=== PATIENT | female | born 1955 | race Caucasian/White ===

== ENCOUNTER → 2018-11-21 07:41 | Outpatient (CLI) | payer OTHER, SELFPAY ==
--- NOTE | 2018-11-21 07:46 | DI.MG.S_ITS ---
BILATERAL DIGITAL SCREENING MAMMOGRAM 3D/2D WITH CAD: 11/21/2018 CLINICAL: Routine screening. Comparison is made to exams dated: 09/10/2009 mammogram and 10/05/2007 mammogram - [facility]. The tissue of both breasts is heterogeneously dense. This may lower the sensitivity of mammography. Current study was also evaluated with a Computer Aided Detection (CAD) system. There is an asymmetry in the right breast middle depth superior region seen on the mediolateral oblique view only. There also is an asymmetry in the right breast middle depth lateral region seen on the craniocaudal view only. There are bilateral circular mole markers. No other significant masses, calcifications, or other findings are seen in either breast. IMPRESSION: INCOMPLETE: NEEDS ADDITIONAL IMAGING EVALUATION The asymmetry in the right breast middle depth superior region seen on the mediolateral oblique view only is indeterminate. Additional views with possible ultrasound are recommended. The asymmetry in the right breast middle depth lateral region seen on the craniocaudal view only is indeterminate. Additional views with possible ultrasound are recommended. This exam was interpreted at Station ID: [id number]. NOTE: For mammograms, a report in lay terms will be sent to the patient. Approximately 15% of breast malignancies will not be visualized mammographically. In the management of a palpable breast mass, a negative mammogram must not discourage biopsy of a clinically suspicious lesion. Electronically Signed By: Adal Copeland M.D. ecl/:11/21/2018 09:56:23 letter sent: Additional Imaging Needed ACR BI-RADS Category 0: Incomplete 3340F
== END ==
PROVIDERS: PCP Internal Medicine; Visit Provider Student in an Organized Health Care Education/Training Program
DX: Z12.31 Encounter for screening mammogram for malignant neoplasm of breast (principal)
CPT/HCPCS: 77063; 77067

== ENCOUNTER → 2019-03-18 14:33 | Outpatient (CLI) | payer MEDICARE, OTHER, SELFPAY ==
--- NOTE | 2019-03-18 | DI.MG.S_ITS ---
UNILATERAL RIGHT DIGITAL DIAGNOSTIC MAMMOGRAM 3D/2D WITH ADDITIONAL VIEWS: 03/18/2019 CLINICAL: Additional evaluation requested from prior study. Comparison is made to exams dated: 11/21/2018 mammogram, 09/10/2009 mammogram, and 10/05/2007 mammogram - [facility]. The tissue of right breast is heterogeneously dense. This may lower the sensitivity of mammography. The asymmetry in the right breast middle depth superior region seen on the mediolateral oblique view only is not seen in additional views. Then asymmetry in the right breast middle depth lateral region seen on the craniocaudal view only is not seen in additional views. No other significant masses or calcifications are seen in the breast. IMPRESSION: The asymmetries in the right breast seen on the screening mammogram likely respresent superimposed fibroglandular tissue and are benign. There is no mammographic evidence of malignancy. A 1 year screening mammogram is recommended. This exam was interpreted at Station ID: [id number]. NOTE: For mammograms, a report in lay terms will be sent to the patient. Approximately 15% of breast malignancies will not be visualized mammographically. In the management of a palpable breast mass, a negative mammogram must not discourage biopsy of a clinically suspicious lesion. Electronically Signed By: Rosanna negrete/:03/18/2019 15:03:11 letter sent: Normal Exam ACR BI-RADS Category 2: Benign Finding(s) 3342F
== END ==
PROVIDERS: PCP Internal Medicine; Visit Provider Student in an Organized Health Care Education/Training Program
DX: R92.8 Other abnormal and inconclusive findings on diagnostic imaging of breast (principal); N64.89 Other specified disorders of breast
CPT/HCPCS: 77065; G0279

== ENCOUNTER → 2019-09-23 09:25 | Outpatient (CLI) | payer MEDICARE, OTHER, SELFPAY ==
[2019-09-25 06:14] LABS: COVID19 Sendout Not Detected (Not Detected)
== END ==
PROVIDERS: PCP Internal Medicine; Visit Provider Registered Nurse
DX: J02.9 Acute pharyngitis, unspecified (principal)
CPT/HCPCS: 87070; 87635

== ENCOUNTER → 2020-03-07 10:27 | Outpatient (CLI) | payer MEDICARE, OTHER, SELFPAY ==
[2020-03-08 16:57] LABS: COVID19 Sendout Not Detected (Not Detect)
== END ==
PROVIDERS: PCP Internal Medicine; Visit Provider Physician Assistant
DX: Z11.59 Encounter for screening for other viral diseases (principal)
CPT/HCPCS: 87635

== ENCOUNTER → 2020-09-29 07:43 | Outpatient (CLI) | payer MEDICARE, OTHER, SELFPAY ==
--- NOTE | 2020-09-29 | DI.US.S_ITS ---
PROCEDURE: US ABD AORTA ANEURYSM SCREEN INDICATIONS: Cardiac murmur, unspecified TECHNIQUE: Real time scanning was performed of the aorta and iliac arteries, with image documentation. COMPARISON: None. FINDINGS: Aorta: Proximal aortic diameter measures 2.3 cm. Mid-aorta measures 1.9 cm. Distal aortic diameter is 1.9 cm. Iliac arteries: Right common iliac artery measures 1.6 cm. Left common iliac artery measures 1.6 cm. IMPRESSION: 1. No abdominal aortic aneurysm. 2. Mild plaque. Dictated by: Zac Arceo M.D. on 09/29/2020 at 8:16 Approved by: Zac Arceo M.D. on 09/29/2020 at 8:17
== END ==
PROVIDERS: PCP Student in an Organized Health Care Education/Training Program; Referring Provider Student in an Organized Health Care Education/Training Program; Visit Provider Student in an Organized Health Care Education/Training Program
DX: R01.1 Cardiac murmur, unspecified (principal); Z13.6 Encounter for screening for cardiovascular disorders; I70.0 Atherosclerosis of aorta
CPT/HCPCS: 76706

== ENCOUNTER → 2022-02-02 07:58 | Outpatient (CLI) | payer MEDICARE, OTHER, SELFPAY ==
--- NOTE | 2022-02-02 | DI.MG.S_ITS ---
BILATERAL DIGITAL SCREENING MAMMOGRAM 3D/2D WITH CAD: 02/02/2022 CLINICAL: Routine screening. Comparison is made to exams dated: 11/21/2018 mammogram, 09/10/2009 mammogram, and 10/05/2007 mammogram - [facility]. Both breasts are heterogeneously dense, which may obscure small masses (category c / 51-75% glandular tissue). Current study was also evaluated with a Computer Aided Detection (CAD) system. There is a benign calcification in the right breast. No significant masses, calcifications, or other findings are seen in either breast. There has been no significant interval change. IMPRESSION: BENIGN There is no mammographic evidence of malignancy. A 1 year screening mammogram is recommended. Based on the Tyrer Cuzick model (a risk assessment model) the patient's lifetime risk is 12.2% and her 10 year risk is 6.9%. According to the ACR, ACS, and NCCN guidelines, an annual breast MRI exam along with mammogram is recommended if the patient's lifetime risk is 20% or greater. This exam was interpreted at Station ID: [id number]. NOTE: For mammograms, a report in lay terms will be sent to the patient. Approximately 15% of breast malignancies will not be visualized mammographically. In the management of a palpable breast mass, a negative mammogram must not discourage biopsy of a clinically suspicious lesion. Electronically Signed By: Zac nettles/gail:02/02/2022 12:13:05 letter sent: Normal Exam ACR BI-RADS Category 2: Benign Finding(s) 3342F
== END ==
PROVIDERS: PCP Student in an Organized Health Care Education/Training Program; Referring Provider Student in an Organized Health Care Education/Training Program; Visit Provider Student in an Organized Health Care Education/Training Program
DX: Z12.31 Encounter for screening mammogram for malignant neoplasm of breast (principal)
CPT/HCPCS: 77063; 77067

== ENCOUNTER 2025-02-12 14:25 | Emergency (ER) | payer MEDICARE, OTHER, SELFPAY ==
[2025-02-12] VITALS (13 sets, daily range): BP systolic 133–244; BP diastolic 78–120; PULSE 46–94; RESP 19–36; O2SAT 81–100
--- NOTE | 2025-02-12 14:43 | DI.CT.S_ITS ---
PROCEDURE: CT ABDOMEN PELVIS W CON INDICATIONS: abd pain TECHNIQUE: After the administration of intravenous contrast, axial sections acquired from the lung bases to the pubic symphysis. Coronal and sagittal reformats were performed. For radiation dose reduction, the following was used: automated exposure control, adjustment of mA and/or kV according to patient size. COMPARISON: None. FINDINGS: Image quality: The exam is performed in late arterial phase. No significant contrast in the hepatic veins. Lower Chest: No significant findings. ABDOMEN: Liver: Heterogeneous appearance of the liver is secondary to late arterial phase. Gallbladder: No radiopaque gallstones or wall thickening. Biliary ducts: No intrahepatic biliary ductal dilatation. Prominent distal common bile duct which measures 8 mm in transverse dimension. Pancreas: Mild pancreatic ductal dilatation without visualized choledocholithiasis. No pancreatic parenchymal lesion by CT. Spleen: Size is within normal limits. Adrenal Glands: Flattened appearance of the left adrenal gland secondary to left pelvic kidney. Kidneys and Ureters: The right kidney is located within the right retroperitoneum. There are 2 right renal arteries. No right hydronephrosis. The left kidney is located within the posterior pelvic inlet with severe hydronephrosis due to a 4 mm stone at the left ureter vesicular junction (Hounsfield density of 453). Stomach and Bowel: Changes of appendectomy. The small bowel is normal in caliber. The large bowel is normal in caliber. Peritoneum: No abnormal intraperitoneal fluid. No free air. Ventral Wall: No significant ventral hernia. Abdominal Nodes: No retroperitoneal or mesenteric adenopathy by size criteria. Vessels: Aorta and inferior vena cava are normal in size. PELVIS: Pelvic Organs: Right adnexal 5.5 cm cystic lesion. Bladder: No bladder wall thickening, accounting for underdistention. Pelvic Nodes: No enlarged lymph nodes. Miscellaneous: No inguinal hernias are seen. Bones: No aggressive osseous abnormality. IMPRESSION: 1. Left obstructive nephrolithiasis due to a 4 mm stone at the left ureter vesicular junction. The left kidney is located in the pelvis. 2. Pancreatic ductal dilatation and mild dilatation of the distal common bile duct without choledocholithiasis. Recommend correlation with liver function tests and lipase. Consider follow-up outpatient abdominal MRCP for further evaluation. 3. Right adnexal 5.5 cm cystic lesion. Recommend further evaluation with outpatient pelvic ultrasound. Dictated by: Librado Rocha M.D. on 02/12/2025 at 16:28 Approved by: Librado Rocha M.D. on 02/12/2025 at 16:39
--- NOTE | 2025-02-12 14:47 | EKG_ITS ---
[id number] [address] Test Date: 2025-02-12 Pat Name: Suri Zambrano Department: Room: Gender: Female Sole Ruffer: ASHA : 1955 Requested By: Order Number: [id number] Reading MD: Rodrigo Moise MD Measurements Intervals [place] Rate: 54 P: 79 RI: 168 QRS: 82 QRSD: 96 T: 80 QT: 470 QTc: 445 Interpretive Statements Sinus bradycardia with premature atrial complexes Electronically Signed On 02-13-2025 7:36:52 PDT by Rodrigo Moise MD
[2025-02-12 14:53] LABS: Add Manual Diff / Slide Review NO; Hematocrit 43.9 % (36-46); Hemoglobin 14.9 g/dL (12.0-16.0); Lymphocytes Absolute Auto 1900 /uL (1100-4500); Mean Corpuscular HGB Conc 33.9 % (30-36); Mean Corpuscular Hemoglobin 31.3 PG (26-34); Mean Corpuscular Volume 92.3 fL (80-100); Platelet Count 260 X10^3/uL (150-400)
[2025-02-12 15:06] LABS: Alanine Aminotransferase 26 IU/L (<35); Albumin 4.8 g/dL (3.5-5.0); Albumin Globulin Ratio 1.5 (1.0-2.8); Alkaline Phosphatase 88 U/L (38-126); Blood Urea Nitrogen 20 mg/dL (7-17); Calcium 9.7 mg/dL (8.4-10.2); Carbon Dioxide 24 mmol/L (22-32); Chloride 102 mmol/L (98-107); Estimated Glomerular Filt Rate > 60 mL/min (>60); Globulin 3.2 g/dL (1.7-4.1); Glucose 165 mg/dL (70-99); HEMOLYSIS < 15 (0-50); Lipase 96 U/L (23-300); Potassium 3.8 mmol/L (3.4-5.1); Sodium 136 mmol/L (137-145); Total Protein 8.0 g/dL (6.3-8.2)
[2025-02-12] MEDS: LACTATED RINGERS 1,000 ML 1000 ML IV (15:18)
[2025-02-12] MEDS: ONDANSETRON 4 MG/2 ML INJ IV (15:21)
--- NOTE | 2025-02-12 15:24 | ED_ITS ---
HPI - Abdominal Pain General Chief Complaint: Abdominal Pain Stated Complaint: Throwing up. Lower abdominal pain x today Time Seen by Provider: 02/12/25 14:42 Source: patient Mode of arrival: Ambulatory History of Present Illness HPI narrative: 69-year-old female history of hypertension presents with sudden onset lower quadrant pain at 11:00 a.m. this morning associated with nausea and dry heaving but no actual vomiting. Patient denies any diarrhea, back pain, hematuria, vaginal discharge, chest pain, shortness of breath, fever, chills, body aches. Other than what is stated 14 point review of system is negative. Related Data Home Medications ?Medication ?Instructions ?Recorded ?Confirmed fluoxetine 40 mg capsule (Prozac) 40 mg PO DAILY 09/2209/23/19 lisinopril 20 1 tab PO DAILY 09/23/1908/27 mg-hydrochlorothiazide 25 mg tablet Previous Rx's ?Medication ?Instructions ?Recorded hydrocodone 5 mg-acetaminophen 325 1 tab PO Q4-6H PRN pain #20 tabs 02/12/25 mg tablet nitrofurantoin 100 mg PO Q12H 5 days #10 ca ps 02/12/25 monohydrate/macrocrystals 100 mg capsule (Macrobid) tamsulosin 0.4 mg capsule (Flomax) 0.4 mg PO DAILY #30 caps 02/12/25 Allergies Allergy/AdvReac Type Severity Reaction Status Date / Time bee pollen (BEE POLLEN) Allergy Unknown Verified 03/07/20 10:37 Penicillins (PENICILLINS) Allergy Unknown Verified 03/07/20 10:37 Review of Systems Review of Systems ROS Unobtainable: All systems reviewed & are unremarkable except as noted in HPI and below Patient History Medical History (Updated 02/12/25 @ 17:44 by Rodrigo Ventura DO) Hypertension Exam Narrative Exam Narrative: GENERAL: [69] year old patient appears stated age. Well-developed patient, in mild distress. HEAD: Atraumatic. Normocephalic. EYES: Pupils equal round and reactive. Extraocular motions intact. No scleral icterus. No injection or drainage. ENT: Nose without bleeding, purulent drainage. Throat without erythema, tonsillar hypertrophy or exudate. Airway patent. NECK: Trachea midline. Non tender CARDIOVASCULAR: Regular rate and rhythm without murmurs, gallops, or rubs. RESPIRATORY: Clear to auscultation. Breath sounds equal bilaterally. No wheezes, rales, or rhonchi. GASTROINTESTINAL: Abdomen soft, LLQ no r/r/g, nondistended. EXTREMITIES: No edema or joint tenderness. BACK: Nontender without deformity or crepitance. No flank tenderness. NEURO: AOx3. SKIN: No rash or erythema of visible areas Initial Vital Signs Initial Vital Signs: Vital Signs Pulse Rate 59 L 02/12/25 14:33 Respiratory Rate 22 02/12/25 14:33 Blood Pressure 244/112 H 02/12/25 14:33 Pulse Oximetry 96 02/12/25 14:33 Oxygen Delivery Method Room Air 02/12/25 14:33 Course Orders Ordered: ED Orders 02/12/25 14:40 Complete Blood Count AUTO DIFF Stat Comprehensive Metabolic Panel Stat Lipase Stat 02/12/25 14:43 CT abdomen pelvis w con Stat EKG-12 Lead Stat 02/12/25 17:15 Urinalysis and Microscopic Stat Urine Culture Stat Ondansetron HCl (Ondansetron 4 Mg/2 Ml Inj) 4 mg IV NOW PRN PRN Reason: Nausea And Vomiting Last Admin: 02/12/25 15:21 Dose: 4 mg Documented By: JAYLEEN Ondansetron HCl (Ondansetron 4 Mg Odt) 4 mg PO NOW PRN PRN Reason: Nausea And Vomiting Discontinued Medications Hydromorphone HCl (Hydromorphone Hcl 0.5 Mg/0.5 Ml Syringe) 0.5 mg IV NOW ONE Stop: 02/12/25 15:23 Last Admin: 02/12/25 15:28 Dose: 0.5 mg Documented By: JAYLEEN Lactated Ringer's (Lactated Ringers) 1,000 mls @ 1,000 mls/hr IV BOLUS ONE Stop: 02/12/25 15:42 Last Infusion: 02/12/25 16:12 Dose: Infused Documented By: Admin: 02/12/25 15:18 Dose: 1,000 mls/hr Documented By: JAYLEEN Ceftriaxone Sodium 1,000 mg/ (Sodium Chloride) 100 mls @ 200 mls/hr IV NOW ONE Stop: 02/12/25 16:52 Last Admin: 02/12/25 17:35 Dose: 200 mls/hr Documented By: RLC Ketorolac Tromethamine (Ketorolac 30 Mg/Ml Vial) 15 mg IV NOW ONE Stop: 02/12/25 15:23 Last Admin: 02/12/25 15:28 Dose: 15 mg Documented By: RLZuleyma Tamsulosin HCl (Tamsulosin 0.4 Mg Capsule) 0.4 mg PO NOW ONE Stop: 02/12/25 16:51 Last Admin: 02/12/25 17:35 Dose: 0.4 mg Documented By: JAYLEEN Vital Signs Vital signs: Vital Signs - 8 hr 02/12/25 14:33 02/12/25 15:14 02/12/25 15:15 Pulse Rate 59 L 77 Respiratory Rate 22 26 H Blood Pressure 244/112 H 203/120 H Pulse Oximetry 96 98 Oxygen Delivery Method Room Air Oxygen Flow Rate 02/12/25 15:15 02/12/25 15:30 02/12/25 15:30 Pulse Rate 53 L 46 L Respiratory Rate 19 24 Blood Pressure 215/102 H Pulse Oximetry 100 100 Oxygen Delivery Method Oxygen Flow Rate 02/12/25 15:41 02/12/25 15:41 02/12/25 16:04 Pulse Rate 48 L 57 L Respiratory Rate 26 H 24 Blood Pressure 244/109 H Pulse Oximetry 100 81 L Oxygen Delivery Method Nasal Cannula Room Air Oxygen Flow Rate 2 02/12/25 16:12 02/12/25 16:12 02/12/25 16:30 Pulse Rate 64 Respiratory Rate 21 Blood Pressure 163/83 H 155/83 H Pulse Oximetry 100 Oxygen Delivery Method Nasal Cannula Oxygen Flow Rate 2 02/12/25 16:30 Pulse Rate 60 Respiratory Rate 19 Blood Pressure Pulse Oximetry 94 Oxygen Delivery Method Oxygen Flow Rate MDM - Abdominal Pain Lab Data 02/12/25 14:40 02/12/25 14:40 Labs: Lab Results 02/12/25 02/12/25 Range/Units 14:40 17:15 WBC 13.0 H (4.5-11.0) X10^3/uL RBC 4.76 (4.0-5.2) X10^6/uL Hgb 14.9 (12.0-16.0) g/dL Hct 43.9 (36-46) % MCV 92.3 (80-100) fL MCH 31.3 (26-34) PG MCHC 33.9 (30-36) % RDW 13.0 (11.6-14.8) % Plt Count 260 (150-400) X10^3/uL Neut % (Auto) 81.3 H (50-75) % Lymph % (Auto) 14.9 L (25-40) % [place] % (Auto) 2.8 L (3-14) % Eos % (Auto) 0.2 L (2-4) % Baso % (Auto) 0.8 (0-2) % Neut # (Auto) 99831 H (2468-3487) /uL Lymph # (Auto) 1900 (3577-7448) /uL [place] # (Auto) 400 (0-900) /uL Eos # (Auto) 0 (0-450) /uL Baso # (Auto) 100 (0-100) /uL Sodium 136 L (137-145) mmol/L Potassium 3.8 (3.4-5.1) mmol/L Chloride 102 (98-107) mmol/L Carbon Dioxide 24 (22-32) mmol/L BUN 20 H (7-17) mg/dL Creatinine 0.90 (0.52-1.04) mg/dL Estimated GFR > 60 (>60) mL/min BUN/Creatinine Ratio 22.2 H (6-22) Glucose 165 H (70-99) mg/dL Calcium 9.7 (8.4-10.2) mg/dL Total Bilirubin 0.8 (0.2-1.3) mg/dL AST 34 (14-36) IU/L ALT 26 (<35) IU/L Alkaline Phosphatase 88 (38-126) U/L Total Protein 8.0 (6.3-8.2) g/dL Albumin 4.8 (3.5-5.0) g/dL Globulin 3.2 (1.7-4.1) g/dL Albumin/Globulin Ratio 1.5 (1.0-2.8) Lipase 96 (23-300) U/L Urine Color Yellow Urine Appearance Clear Urine pH 6.0 (4.5-8.0) Ur Specific [place] 1.015 (1.000-1.035) Urine Protein Trace H (Negative) Urine Glucose (UA) Negative (Negative) g/dL Urine Ketones 1+ H (NEGATIVE) Urine Occult Blood 2+ H (Negative) Urine Nitrate Positive H (Negative) Urine Bilirubin Negative (NEGATIVE) Urine Urobilinogen 0.2 (0.2) E.U./dL Ur Leukocyte Esterase Negative (NEGATIVE) Urine RBC 0-1/hpf (0-5/HPF) Urine WBC None seen (0-5/HPF) Ur Squamous Epith Cells 0-1 /hpf (0-5/HPF) Urine Bacteria Many (>30) H (None) Ur Culture Indicated? Specimen cultured Vol Urine Centrifuged 10ml (spun) Imaging Data CT scan - abdomen/pelvis: Radiologist's Impression: [address] [address] [address] Scan Report Signed Patient: Suri Zambrano MR#: [id number] : 1955 Acct:[id number] Age/Sex: 69 / F Date of Service: 02/12/25 Loc: ED Accession Number: [id number] Procedure: CT abdomen pelvis w con Ordering Provider: Rodrigo Ventura D.O. PROCEDURE: CT ABDOMEN PELVIS W CON INDICATIONS: abd pain TECHNIQUE: After the administration of intravenous contrast, axial sections acquired from the lung bases to the pubic symphysis. Coronal and sagittal reformats were performed. For radiation dose reduction, the following was used: automated exposure control, adjustment of mA and/or kV according to patient size. COMPARISON: None. FINDINGS: Image quality: The exam is performed in late arterial phase. No significant contrast in the hepatic veins. Lower Chest: No significant findings. ABDOMEN: Liver: Heterogeneous appearance of the liver is secondary to late arterial phase. Gallbladder: No radiopaque gallstones or wall thickening. Biliary ducts: No intrahepatic biliary ductal dilatation. Prominent distal common bile duct which measures 8 mm in transverse dimension. Pancreas: Mild pancreatic ductal dilatation without visualized choledocholithiasis. No pancreatic parenchymal lesion by CT. Spleen: Size is within normal limits. Adrenal Glands: Flattened appearance of the left adrenal gland secondary to left pelvic kidney. Kidneys and Ureters: The right kidney is located within the right retroperitoneum. There are 2 right renal arteries. No right hydronephrosis. The left kidney is located within the posterior pelvic inlet with severe hydronephrosis due to a 4 mm stone at the left ureter vesicular junction (Hounsfield density of 453). Stomach and Bowel: Changes of appendectomy. The small bowel is normal in caliber. The large bowel is normal in caliber. Peritoneum: No abnormal intraperitoneal fluid. No free air. Ventral Wall: No significant ventral hernia. Abdominal Nodes: No retroperitoneal or mesenteric adenopathy by size criteria. Vessels: Aorta and inferior vena cava are normal in size. PELVIS: Pelvic Organs: Right adnexal 5.5 cm cystic lesion. Bladder: No bladder wall thickening, accounting for underdistention. Pelvic Nodes: No enlarged lymph nodes. Miscellaneous: No inguinal hernias are seen. Bones: No aggressive osseous abnormality. IMPRESSION: 1. Left obstructive nephrolithiasis due to a 4 mm stone at the left ureter vesicular junction. The left kidney is located in the pelvis. 2. Pancreatic ductal dilatation and mild dilatation of the distal common bile duct without choledocholithiasis. Recommend correlation with liver function tests and lipase. Consider follow-up outpatient abdominal MRCP for further evaluation. 3. Right adnexal 5.5 cm cystic lesion. Recommend further evaluation with outpatient pelvic ultrasound. ECG Data Interpretation: Sinus Chao HR 54 ND 168 QRS [address] change NO previous EKG to compare MDM Narrative Medical decision making narrative: All lab work, vital signs, nurse triage note, medication list, previous ER visits, and all imaging studies reviewed. CT abdomen and pelvis showed left obstructive kidney stone due to 4 mm stone at the left UVJ junction. Left kidney is located in the pelvis. Pancreatic ductal dilatation and mild dilatation of the distal common bile duct without choledocholithiasis. Right adnexal cyst 5.5 cm cystic lesion. Patient given fluids Dilaudid Toradol Flomax strainer. Patient will be discharged on Flomax strainer and hydrocodone and to follow up with Urology and to keep hydrated. Differential diagnosis includes diverticulitis kidney stone kidney infection UTI pancreatitis constipation. WBC of 13 with left shift sodium 136 glucose 165 lipase 96. UA shows positive nitrite positive ketones positive blood many bacteria. Patient also given Rocephin here in to [place] home on macrobid rx. Discharge Plan Departure Patient Disposition: Home Clinical Impression: Kidney stone, Acute UTI Instructions: DI for Kidney Stones, DI for Urinary Tract Infection (UTI) Activity Restrictions/Additional Instructions: Return with new or worsening symptoms. Keep hydrated. Follow up with urologist next week call office for appointment. Take your medicines as directed. Prescriptions: New tamsulosin [Flomax] 0.4 mg capsule 0.4 mg PO DAILY Qty: 30 0RF hydrocodone-acetaminophen 5-325 mg tablet 1 tab PO Q4-6H PRN (Reason: pain) Qty: 20 0RF nitrofurantoin monohyd/m-cryst [Macrobid] 100 mg capsule 100 mg PO Q12H 5 Days Qty: 10 0RF Rx Instructions: must administer with a meal/food No Action lisinopril-hydrochlorothiazide 20-25 mg tablet 1 tab PO DAILY fluoxetine [Prozac] 40 mg capsule 40 mg PO DAILY Referrals: Jeanne Dixon PA-C [Primary Care Provider, Medical] Stand Alone Forms: Patient Portal/API
[2025-02-12] MEDS: KETOROLAC 30 MG/ML VIAL 15 MG IV (15:28)
[2025-02-12 17:21] LABS: Appearance Urine UA CLEAR; Bilirubin Urine UA NEGATIVE (NEGATIVE); Color Urine UA YELLOW; Glucose Urine UA NEGATIVE (Negative); Ketones Urine UA 1+ (NEGATIVE); Leukocyte Esterase Urine UA NEGATIVE (NEGATIVE); Nitrite Urine UA POSITIVE (Negative); Occult Blood Urine UA 2+ (Negative); Protein Urine UA TRACE (Negative); Specific Gravity Urine UA 1.015 (1.000-1.035); Urobilinogen Urine UA 0.2 E.U./dL (0.2)
[2025-02-12 17:33] LABS: Culture Indicated Urine Specimen Cultured; pH Urine UA 6.0 (4.5-8.0)
[2025-02-12] MEDS: TAMSULOSIN 0.4 MG CAPSULE PO (17:35)
== END 2025-02-12 18:45 | disposition home or self-care (01) ==
PROVIDERS: Emergency Provider Family Medicine; PCP Student in an Organized Health Care Education/Training Program
DX: N20.0 Calculus of kidney (principal); N39.0 Urinary tract infection, site not specified; R11.0 Nausea
CPT/HCPCS: 36415; 74177; 80053; 81001; 83690; 85025; 87077; 87086; 87186; 93005; 96361; 96365; 96375; 99285; J0696; J1171; J1885; J2405; Q9967